=== PATIENT | male | born 1960 | race Caucasian/White ===

== ENCOUNTER 2022-03-09 14:08 | Emergency (ER) | payer BC ==
[~2022-03-09] VITALS: Ht 175.3 cm; Wt 90.0 kg
[2022-03-09 16:42] VITALS: BP 189/101
[2022-03-09] MEDS ORDERED: cloNIDine 0.1 mg tablet PO ONE (16:55)
== END 2022-03-09 17:34 | disposition home or self-care (01) ==
LOC: VAS 14:09
DX: I10 Essential (primary) hypertension (principal)
CPT/HCPCS: 99283

== ENCOUNTER 2022-10-25 12:12 | Emergency (ER) | payer BC ==
[~2022-10-25] VITALS: Ht 175.3 cm; Wt 88.2 kg
[2022-10-25 12:35] LABS: BASOPHILS # (AUTO) 0.1 X10'3 (0-0.2); BASOPHILS % (AUTO) 0.5 % (0-1); EOSINOPHILS # (AUTO) 0.2 X10'3 (0-0.9); EOSINOPHILS % (AUTO) 2.2 % (0-6); HEMATOCRIT 48.6 % (42.0-52.0); LYMPHOCYTES # (AUTO) 1.7 X10'3 (1.1-4.8); LYMPHOCYTES % (AUTO) 17.5 % (21-51); MEAN CORPUSCULAR HEMOGLOBIN 32.4 PG (27.0-31.0); MEAN CORPUSCULAR HGB CONC 35.1 g/dL (33.0-36.5); MEAN CORPUSCULAR VOLUME 92.5 FL (78-98); MEAN PLATELET VOLUME 7.9 FL (7.4-10.4); MONOCYTES # (AUTO) 1.2 X10'3 (0-0.9); MONOCYTES % (AUTO) 12.6 % (2-12); NEUTROPHILS # (AUTO) 6.3 X10'3 (1.8-7.7); NEUTROPHILS % (AUTO) 67.2 % (42-75); PLATELET COUNT 230 X10'3 (140-440); RED BLOOD COUNT 5.25 X10'6 (4.70-6.10); RED CELL DISTRIBUTION WIDTH 12.6 % (11.5-14.5); WHITE BLOOD COUNT 9.5 X10'3 (4.5-11.0)
[2022-10-25 12:55] LABS: ALANINE AMINOTRANSFERASE 47 U/L (12-78); ALBUMIN 4.7 G/DL (3.4-5.0); ALBUMIN/GLOBULIN RATIO 1.3 (1.1-1.5); ALKALINE PHOSPHATASE 59 IU/L (46-116); ANION GAP 10 (8-16); ASPARTATE AMINO TRANSFERASE 24 U/L (10-37); BILIRUBIN,TOTAL 0.7 MG/DL (0.1-1.0); BLOOD UREA NITROGEN 10 MG/DL (7-18); BUN/CREATININE RATIO 11.9 (10.0-20.0); CALCIUM 9.5 MG/DL (8.5-10.1); CHLORIDE 101 MMOL/L (99-107); CREATININE 0.84 MG/DL (0.60-1.10); GLUCOSE 109 MG/DL (70-104); POTASSIUM 3.2 MMOL/L (3.5-5.1); SODIUM 139 MMOL/L (135-145); TOTAL CARBON DIOXIDE 27.8 MMOL/L (24-32); TOTAL PROTEIN 8.2 G/DL (6.4-8.2); eGFR > 90 ML/MIN
[2022-10-25] MEDS ORDERED: propranolol 10mg tablet PO ONE ×2 (17:45→18:55)
[2022-10-25] MEDS ORDERED: acetaminophen 650mg rectal suppository RC ONE (18:00)
[2022-10-25] MEDS ORDERED: acetaminophen 325mg tablet PO ONE (18:05)
[2022-10-25] MEDS ORDERED: PROP40TA72 PO (18:51)
[2022-10-25] MEDS ORDERED: potassium Cl 20 mEq SR tablet PO ONE (18:55)
[2022-10-25 19:15] VITALS: BP 136/94
== END 2022-10-25 19:17 | disposition home or self-care (01) ==
LOC: ER 12:12
DX: I10 Essential (primary) hypertension (principal); R00.0 Tachycardia, unspecified; R51.9 Headache, unspecified; E87.6 Hypokalemia; Z88.0 Allergy status to penicillin; Z79.899 Other long term (current) drug therapy
CPT/HCPCS: 36415; 71045; 80053; 83880; 84484; 85025; 93005; 99285

== ENCOUNTER 2023-08-25 07:54 | Day surgery (SDC) | payer BC ==
[2023-08-17 14:39] LABS: BILIRUBIN,URINE NEGATIVE (Neg); CLARITY,URINE CLEAR (Clear); COLOR,URINE YELLOW (Yellow); GLUCOSE, URINE NEGATIVE (Neg); KETONES,URINE NEGATIVE (Neg); LEUKOCYTE ESTERASE ,URINE NEGATIVE (Neg); NITRITES, URINE NEGATIVE (Neg); OCCULT BLOOD,URINE NEGATIVE (Neg); PROTEIN,URINE NEGATIVE (Neg)
[2023-08-17 14:41] LABS: BASOPHILS % (AUTO) 0.5 % (0-1); EOSINOPHILS # (AUTO) 0.1 X10'3 (0-0.9); LYMPHOCYTES # (AUTO) 1.5 X10'3 (1.1-4.8); LYMPHOCYTES % (AUTO) 25.4 % (21-51); MEAN CORPUSCULAR HEMOGLOBIN 31.9 PG (27.0-31.0); MEAN CORPUSCULAR HGB CONC 34.6 g/dL (33.0-36.5); MEAN CORPUSCULAR VOLUME 92.3 FL (78-98); MONOCYTES # (AUTO) 0.7 X10'3 (0-0.9); MONOCYTES % (AUTO) 10.8 % (2-12); NEUTROPHILS # (AUTO) 3.8 X10'3 (1.8-7.7); NEUTROPHILS % (AUTO) 62.3 % (42-75); PRE OP HEMATOCRIT 47.6 % (42.0-52.0); PRE OP HEMOGLOBIN 16.5 g/dL (14.0-17.9); PRE OP PLATELET COUNT 250 X10'3 (140-440); PRE OP WHITE BLOOD COUNT 6.1 10'3 (4.8-10.8); RED BLOOD COUNT 5.16 X10'6 (4.70-6.10); RED CELL DISTRIBUTION WIDTH 13.4 % (11.5-14.5)
[2023-08-17 14:45] LABS: UA COLLECTION TYPE CLN CATCH MIDSTREAM
[2023-08-17 14:53] LABS: PRE OP PROTIME 10.6 SECONDS (9.0-12.0)
[2023-08-17 14:55] LABS: ALBUMIN 4.6 G/DL (3.4-5.0); ALBUMIN/GLOBULIN RATIO 1.3 (1.1-1.5); ALKALINE PHOSPHATASE 42 IU/L (46-116); BLOOD UREA NITROGEN 14 MG/DL (7-18); BUN/CREATININE RATIO 16.3 (10.0-20.0); CALCIUM 9.8 MG/DL (8.5-10.1); CHLORIDE 101 MMOL/L (99-107); CREATININE 0.86 MG/DL (0.60-1.10); PRE OP ALT 53 U/L (30-65); PRE OP ANION GAP 9 (8-16); PRE OP AST 25 U/L (10-37); PRE OP BILIRUB, TOTAL 1.1 MG/DL (0.0-1.0); PRE OP GLUCOSE 124 MG/DL (70-104); PRE OP POTASSIUM 3.7 MMOL/L (3.4-5.1); PRE OP SODIUM 142 MMOL/L (135-145); TOTAL CARBON DIOXIDE 32.3 MMOL/L (24-32); TOTAL PROTEIN 8.2 G/DL (6.4-8.2); eGFR 90 ML/MIN
[2023-08-25] VITALS (8 sets, daily range): BP systolic 138–151; BP diastolic 55–88; PULSE 54–69; RESP 12–18; TEMP 98.7; O2SAT 93–99
[~2023-08-25] VITALS: Ht 175.3 cm; Wt 85.2 kg
[~2023-08-25 07:54] MED LIST: ATOR20TA PO; CHLO25TA10 PO; DILT120C20 PO; DOCUMENT DATE & TIME OF BETA-BLOCKER PO ONE; LISI40TA13 PO; METO-411 PO; cefazolin 2gm/D5W 100mL 100 ML IV ONE; famotidine 20mg tablet PO ONE; ringers solution, lacted 1,000 ML IV SCH
[2023-08-25] MEDS ORDERED: morphine 2 MG/ML inj. syringe IV PRN (08:10)
[2023-08-25] MEDS ORDERED: morphine 4 MG/ML inj SYRINge IV PRN (08:10)
[2023-08-25] MEDS ORDERED: labetalol 20mg/4ml (5mg/ml) syringe IV PRN (08:10)
[2023-08-25] MEDS ORDERED: hydrALAZINE 20mg/ml inj. IV PRN (08:10)
[2023-08-25] MEDS ORDERED: ringers solution, lacted 1,000 ML IV SCH (08:10)
[2023-08-25] MEDS ORDERED: ondansetron/PF 4mg/2ml inj IV PRN (08:10)
[2023-08-25] MEDS ORDERED: fentaNYL/PF 50MCG/1 ML 2ML syringe IV PRN ×2 (08:10)
[2023-08-25] MEDS ORDERED: sevoflurane 250ml liquid IH ONE (09:38)
[2023-08-25] MEDS ORDERED: fentaNYL/PF 50MCG/1 ML 2ML syringe ONE (09:57)
[2023-08-25] MEDS ORDERED: ROPIVAcaine 0.5% (5mg/ml) 30ml vial ONE (09:58)
[2023-08-25] MEDS ORDERED: LIDOcaine 2% (20mg/ml) 5ml vial ONE (09:58)
[2023-08-25] MEDS ORDERED: ondansetron/PF 4mg/2ml inj ONE (09:58)
[2023-08-25] MEDS ORDERED: propofol inj 20 ML IV ONE (09:58)
[2023-08-25] MEDS ORDERED: acetaminophen 1,000mg/100ml IV 100 ML IV ONE (10:01)
== END 2023-08-25 12:27 | disposition home or self-care (01) ==
LOC: PAS 07:54
PROVIDERS: ATTEND Specialist
DX: D17.22 Benign lipomatous neoplasm of skin and subcutaneous tissue of left arm (principal); G89.18 Other acute postprocedural pain; I10 Essential (primary) hypertension; E78.5 Hyperlipidemia, unspecified; I20.9 Angina pectoris, unspecified; Z79.899 Other long term (current) drug therapy; Z98.890 Other specified postprocedural states; Z88.0 Allergy status to penicillin; Z88.8 Allergy status to other drugs, medicaments and biological substances
CPT/HCPCS: 24073; 36415; 64415; 71045; 80053; 81003; 82948; 85025; 85610; 85730; J0131; J0690; J1100; J2405; J2704; J2795; J3010; J3490; J7030; J7120; Z7506; Z7508; Z7512; A4215; A4618; A7000